=== PATIENT | female | born 1990 | race Two or more races ===

== ENCOUNTER 2021-09-20 22:30 | Emergency (ER) | payer OTHER ==
[~2021-09-20] VITALS: Ht 154.9 cm; Wt 59.0 kg
--- NOTE | 2021-09-20 22:49 | NUR ---
BIBSELF C/O HEAVY MENSTRUATION X1 DAY. CHANGED 5 TAMPONS WITHIN 1 HOUR. +DIZZY, BODY ACHES, ABD PAIN. PT A/OX4. TOLERATING R/A WELL WITH NO SOB. PT AMBULATORY WITH STEADY GAIT. SAFETY MEASURES IN PLACE.
[2021-09-20] MEDS ORDERED: IV NS 0.9% 1,000 ML BAG IV ONE (23:00)
--- NOTE | 2021-09-20 23:15 | NUR ---
URINE COLLECTED AND SENT TO LAB
--- NOTE | 2021-09-20 23:31 | NUR ---
Michelle JERRY #20G S/L. RECOVERY ASSISTANT AT PT'S BEDSIDE
[2021-09-20 23:45] LABS: BASOPHILS % (AUTO) 0.6 % (0.0-2.0); BILIRUBIN,URINE NEGATIVE (NEGATIVE); COLOR,URINE YELLOW (YELLOW); EOSINOPHILS % (AUTO) 1.8 % (0.0-6.0); HEMATOCRIT 35 % (33-45); LEUKOCYTE ESTERASE ,URINE NEGATIVE (NEGATIVE); LYMPHOCYTES # (AUTO) 2.7 K/uL (0.8-4.8); MEAN CORPUSCULAR HGB CONC 34 g/dl (31.0-36.0); MEAN CORPUSCULAR VOLUME 87 fL (82-100); MONOCYTES # (AUTO) 0.5 K/uL (0.1-1.30); MONOCYTES % (AUTO) 5.9 % (2.0-12.0); NEUTROPHILS # (AUTO) 4.3 K/uL (1.8-8.9); NEUTROPHILS % (AUTO) 56.7 % (43.0-81.0); NITRITE, URINE NEGATIVE (NEGATIVE); PLATELET COUNT (AUTO) 156 K/uL (150-450); PROTEIN,URINE NEGATIVE (NEGATIVE); RED BLOOD CELL COUNT(AUTO) 4.08 MIL/uL (4.0-5.2); UGLUCOSE NEGATIVE (NEGATIVE); UROBILINOGEN,URINE 0.2 EU/dL (0.2); WHITE BLOOD COUNT (AUTO) 7.6 K/uL (4.3-11.0)
[2021-09-20 23:55] LABS: CALCIUM, SERUM 8.5 mg/dL (8.5-10.1); CREATININE 0.6 mg/dL (0.6-1.3); POTASSIUM 3.6 mmol/L (3.5-5.1)
[2021-09-21 00:07] LABS: ALBUMIN 3.6 g/dL (3.4-5.0); BILIRUBIN,TOTAL 0.2 mg/dL (0.2-1.0)
--- NOTE | 2021-09-21 00:17 | NUR ---
US TECH AT PT'S BEDSIDE
--- NOTE | 2021-09-21 02:16 | NUR ---
BILL PAGED FOR READ UPDATE ASHVIN WILL READ IN 20-30 MIN
--- NOTE | 2021-09-21 03:18 | NUR ---
BILL REPAGED FOR UPDATE ON READ ASHVIN WAS REASSIGNED. ORDER NOW TO BE READ BY DR REYES IN ABOUT 20 MIN.
--- NOTE | 2021-09-21 03:45 | NUR ---
pt. given discharge instructions. pt left in stable condition
[2021-09-21 03:49] VITALS: BP 99/65
[2021-09-21 08:19] LABS: BACTERIA,URINE None seen /HPF (None Seen); RBC,URINE 51-80 /HPF (0-2); SQUAMOUS EPITHELIAL CELL,UR None Seen /HPF (None Seen)
== END 2021-09-21 03:49 | disposition home or self-care (01) ==
LOC: ER 22:38
DX: N93.8 Other specified abnormal uterine and vaginal bleeding (principal); R42 Dizziness and giddiness
CPT/HCPCS: 99285; 96360; 76856; 85025; 80048; 80076; 81001; 36415; 85730; 86850; 84702; J7030